=== PATIENT | female | born 1970 | race Caucasian/White ===

== ENCOUNTER → 2017-08-28 17:26 | Outpatient (CLI) | payer MEDICARE, MEDICAID, SELFPAY ==
--- NOTE | 2017-08-28 17:38 | XR_ITS ---
XR chest 2V HISTORY: ITS.REASON: COUGH,RHONCHI ORDERING PHYSICIAN: Sanna Brito PATIENT AGE: 47 years COMPARISON: 10/27/2016 FINDINGS:. No lobar consolidation or collapse. Prior left mastectomy. No acute bony anomalies. The cardiomediastinal silhouette and pulmonary vascularity are within normal limits. Right subclavian Mediport catheter remains in place. The tip is in region of the superior vena cava. There is some hyperinflation with coarsening of the bronchovascular markings. IMPRESSION: No change with no acute finding. Hyperinflation suggesting small airway disease/COPD
== END ==
PROVIDERS: PCP Physician Assistant; Visit Provider Physician Assistant
DX: R05 Cough (principal); R09.89 Other specified symptoms and signs involving the circulatory and respiratory systems
CPT/HCPCS: 71046

== ENCOUNTER 2018-11-19 13:48 | Emergency (ER) | payer MEDICARE, MEDICAID, SELFPAY ==
[2018-11-19] VITALS (8 sets, daily range): BP systolic 100–126; BP diastolic 53–84; PULSE 68–83; RESP 18; TEMP 36.6–37.2; O2SAT 94–100; BMI 21.8
--- NOTE | 2018-11-19 14:39 | PC.NURSE ---
SENT TO ED FOR FURTHER EVALUATION AND TREATMENT TO ROOM 8. REPORT GIVEN TO LAZ BOLANOS. TO ED PER W/C. WITH [facility] STAFF
--- NOTE | 2018-11-19 14:46 | HMH.EDGENADL ---
ED Disposition Clinical Impression: Lymphangitis Disposition: Home, Self-Care Condition on Discharge: Fair Instructions: DI for Lymphangitis-Adult Prescriptions: Sulfamethoxazole/Trimethoprim [Bactrim DS tablet] 1 each PO BID 7 Days #14 tab Sulfamethoxazole/Trimethoprim [Bactrim DS tablet] 1 each PO BID 7 Days #14 tab cephALEXin [Keflex 500mg Cap] 1,000 mg PO BID 7 Days #28 cap cephALEXin [Keflex 500mg Cap] 1,000 mg PO BID 7 Days #28 cap Hydrocodone/Acetaminophen [[place] 7.5-325 Tablet] 1 tab PO Q4H PRN 3 Days #10 tab PRN Reason: Moderate Pain Referrals: Provider,Referral, MD [Primary Care Provider] - Time of Disposition: 17:33 - Critical Care Critical Care Time: No Attestation: On 11/19/18, the high probability of a clinically significant, sudden or life threatening deterioration of the following system(s) required my full and direct attention, intervention and personal management. The time I documented below is in addition to time spent performing reported procedures but includes the following listed in this critical care notation. Medical Decision Making - Medical Records Medical records reviewed: Yes: I reviewed the patient's medical records. - Shaan Inquiry Pt receiving controlled substance: No Shaan was queried for this patient: No Vital Signs: 11/19/18 14:24 11/19/18 14:26 11/19/18 14:43 Temperature 98.9 F 98.9 F 98.9 F Temperature Source Oral Oral Oral Pulse Rate [Right Brachial] 77 77 77 Respiratory Rate 18 18 18 Blood Pressure [Right Arm] 102/53 L 102/53 L 102/53 L Blood Pressure Mean [Right Arm] 69 69 69 Blood Pressure Source [Right Arm] Automatic Cuff Automatic Cuff Automatic Cuff Blood Pressure Position [Right Arm] Sitting Sitting Sitting 02 Sat by Pulse Oximetry 94 L 94 L 94 L Oxygen Delivery Method Room Air Room Air Room Air 11/19/18 15:27 11/19/18 16:01 Temperature Temperature Source Pulse Rate [Right Brachial] 74 78 Respiratory Rate Blood Pressure [Right Arm] 110/61 107/75 L Blood Pressure Mean [Right Arm] 77 85 Blood Pressure Source [Right Arm] Automatic Cuff Automatic Cuff Blood Pressure Position [Right Arm] Sitting Sitting 02 Sat by Pulse Oximetry 95 95 Oxygen Delivery Method Room Air Room Air - Lab Data Lab results reviewed: Yes: I reviewed the patient's lab results. Lab Results 11/19/18 16:39: Sodium 134 L, Potassium 3.5, Chloride 98, Carbon Dioxide 28, Anion Gap 11.5, BUN 10, Creatinine 0.64, Estimated Creat Clear 83, Estimated GFR 99, Est GFR ( Amer) 120, Glucose 93, Calcium 9.2 Result diagrams: 11/19/18 16:39 Orders (Tests/Meds): ED MEDICATIONS Generic Name Dose Route Start Last Admin Trade Name Freq PRN Reason Stop Dose Admin Ceftriaxone Sodium 2 gm/ 100 mls @ 200 mls/hr 11/19/18 15:45 11/19/18 16:45 Sodium Chloride IV 12/03/18 15:44 200 mls/hr Q24H KENDRA Administration Protocol Discontinued Medications Generic Name Dose Route Start Last Admin Trade Name Freq PRN Reason Stop Dose Admin Ketorolac Tromethamine 60 mg 11/19/18 14:52 11/19/18 14:56 Toradol 60mg/2ml Vial IM 11/19/18 14:53 Not Given ONCE ONE Methylprednisolone Sodium Succinate 80 mg 11/19/18 15:41 11/19/18 16:45 Methylprednisolone Sod Succinate 40mg Vial IV 11/19/18 15:42 80 mg ONCE ONE Administration Prednisone 60 mg 11/19/18 14:52 11/19/18 14:57 Deltasone 20mg Tablet PO 11/19/18 14:53 Not Given ONCE ONE ORDERS Category Date Time Status CBC [Complete Blood Count Auto Diff] Stat Lab 11/19/18 16:39 Received Lactic Acid Stat Lab 11/19/18 16:39 Received Blood Culture Stat Micro 11/19/18 16:29 Received - Radiology Data #1 Image(s): Other (ultrasound left arm, doppler venous) Image Reviewed: Yes I discussed the image results w/the radiologist Preliminary Findings: Normal/NAD General Adult HPI - General Stated complaint: infection on arm Time Seen by Provider: 11/19/18 14:46 Mode of Arrival: F
--- NOTE | 2018-11-19 14:51 | ED_ITS ---
ED Disposition Clinical Impression: Lymphangitis Disposition: Home, Self-Care Condition on Discharge: Fair Instructions: DI for Lymphangitis-Adult Prescriptions: Sulfamethoxazole/Trimethoprim [Bactrim DS tablet] 1 each PO BID 7 Days #14 tab Sulfamethoxazole/Trimethoprim [Bactrim DS tablet] 1 each PO BID 7 Days #14 tab cephALEXin [Keflex 500mg Cap] 1,000 mg PO BID 7 Days #28 cap cephALEXin [Keflex 500mg Cap] 1,000 mg PO BID 7 Days #28 cap Hydrocodone/Acetaminophen [[place] 7.5-325 Tablet] 1 tab PO Q4H PRN 3 Days #10 tab PRN Reason: Moderate Pain Referrals: Provider,Referral, MD [Primary Care Provider] - Time of Disposition: 17:33 - Critical Care Critical Care Time: No Attestation: On 11/19/18, the high probability of a clinically significant, sudden or life threatening deterioration of the following system(s) required my full and direct attention, intervention and personal management. The time I documented below is in addition to time spent performing reported procedures but includes the following listed in this critical care notation. Medical Decision Making - Medical Records Medical records reviewed: Yes: I reviewed the patient's medical records. - Shaan Inquiry Pt receiving controlled substance: No Shaan was queried for this patient: No Vital Signs: 11/19/18 14:24 11/19/18 14:26 11/19/18 14:43 Temperature 98.9 F 98.9 F 98.9 F Temperature Source Oral Oral Oral Pulse Rate [Right Brachial] 77 77 77 Respiratory Rate 18 18 18 Blood Pressure [Right Arm] 102/53 L 102/53 L 102/53 L Blood Pressure Mean [Right Arm] 69 69 69 Blood Pressure Source [Right Arm] Automatic Cuff Automatic Cuff Automatic Cuff Blood Pressure Position [Right Arm] Sitting Sitting Sitting 02 Sat by Pulse Oximetry 94 L 94 L 94 L Oxygen Delivery Method Room Air Room Air Room Air 11/19/18 15:27 11/19/18 16:01 Temperature Temperature Source Pulse Rate [Right Brachial] 74 78 Respiratory Rate Blood Pressure [Right Arm] 110/61 107/75 L Blood Pressure Mean [Right Arm] 77 85 Blood Pressure Source [Right Arm] Automatic Cuff Automatic Cuff Blood Pressure Position [Right Arm] Sitting Sitting 02 Sat by Pulse Oximetry 95 95 Oxygen Delivery Method Room Air Room Air - Lab Data Lab results reviewed: Yes: I reviewed the patient's lab results. Lab Results 11/19/18 16:39: Sodium 134 L, Potassium 3.5, Chloride 98, Carbon Dioxide 28, Anion Gap 11.5, BUN 10, Creatinine 0.64, Estimated Creat Clear 83, Estimated GFR 99, Est GFR ( Amer) 120, Glucose 93, Calcium 9.2 Result diagrams: 11/19/18 16:39 Orders (Tests/Meds): ED MEDICATIONS Generic Name Dose Route Start Last Admin Trade Name Freq PRN Reason Stop Dose Admin Ceftriaxone Sodium 2 gm/ 100 mls @ 200 mls/hr 11/19/18 15:45 11/19/18 16:45 Sodium Chloride IV 12/03/18 15:44 200 mls/hr Q24H KENDRA Administration Protocol Discontinued Medications Generic Name Dose Route Start Last Admin Trade Name Freq PRN Reason Stop Dose Admin Ketorolac Tromethamine 60 mg 11/19/18 14:52 11/19/18 14:56 Toradol 60mg/2ml Vial IM 11/19/18 14:53 Not Given ONCE ONE
--- NOTE | 2018-11-19 15:39 | NVE_ITS ---
Venous Exam Indications: 729.81 Swelling of limb. Redness of LUE, no trauma. Pt has hx of gamma knife brain surgery in 2018. IMPRESSIONS No evidence of deep or superficial vein thrombosis involving the veins of the left upper extremity Left upper extremity venous duplex. Doppler flow study including spectral analysis, color and gonzalez scale imaging. Location: Vascular laboratory. Patient status: Emergency department. CRITICAL FINDINGS - Reported to: Dr. Leon - 11/19/2018 - 16:13 pm - Neg. for DVT Tables: Venous flow and imaging: + + + Location Flow properties + + + Left internal jugular Normal phasicity; spontaneous; compressible + + + Left subclavian Normal phasicity; spontaneous; normal augmentation; compressible + + + Left axillary Normal phasicity; spontaneous; normal augmentation; compressible + + + Left brachial Normal phasicity; spontaneous; normal augmentation; compressible + + + Left cephalic Normal phasicity; spontaneous; normal augmentation; compressible + + + Left basilic Normal phasicity; spontaneous; normal augmentation; compressible + + + Left radial Compressible + + + Left ulnar Compressible + + + Right subclavian Normal phasicity; spontaneous; normal augmentation; compressible + + + (Report amended ) Electronically signed by: Galo Narayan [id number]
[2018-11-19 17:03] LABS: Anion Gap 11.5 mEq/L (5-15); Blood Urea Nitrogen 10 mg/dL (7-18); Calcium 9.2 mg/dL (8.5-10.1); Carbon Dioxide 28 mmol/L (21.0-32.0); Chloride 98 mmol/L (98-107); Creatinine Clearance Estimated 83 mL/min (50-200); Creatinine,Serum 0.64 mg/dL (0.55-1.02); Estimated Glomerular Filt Rate 99 ml/min (>60); GFR (African American) 120 ML/MIN (>60); Glucose 93 mg/dL (74-106); Potassium 3.5 mmoL/L (3.5-5.1); Sodium 134 mmol/L (136-145)
[2018-11-19 17:26] LABS: Lactic Acid 1.6 mmol/L (0.4-2.0)
[2018-11-19 17:31] LABS: Basophils % 0.2 % (0.1-2.0); Eosinophils % 0.1 % (0.1-12.0); Hemoglobin 15.4 g/dL (12.2-16.2); Lymphocytes # 0.8 K/mm3 (0.7-4.5); Lymphocytes % 7.3 % (10-50); Mean Corpuscular HGB Conc 35.7 g/dL (31.8-35.4); Mean Corpuscular Hemoglobin 35.5 pg (27.0-31.2); Mean Corpuscular Volume 99.3 fl (81-99); Mean Platelet Volume 8.6 fl (7.4-10.4); Monocytes # 0.3 K/mm3 (0.1-1.0); Monocytes % 2.7 % (1.7-9.3); Neutrophils # 9.4 K/mm3 (1.8-7.8); Neutrophils % 89.6 % (37.0-80.0); Platelet Count 77 K/mm3 (142-424); Red Blood Count 4.33 M/mm3 (4.20-5.40); Red Cell Distribution Width 14.9 % (11.5-17.5); White Blood Count 10.5 K/mm3 (4.8-10.8)
[2018-11-19 17:34] LABS: MANUAL DIFFERENTIAL MANUAL DIFFERENTIAL (MANUAL DIFF)
[2018-11-19 18:24] LABS: Lymphocytes % 7 % (10-50); Monocytes % 2 % (2-9); Neutrophils % 56 % (42-76); Platelet Estimate Slight Decrease; RBC Morphology Normal; Total Cells Counted 100
== END 2018-11-19 17:56 | disposition home or self-care (01) ==
LOC: UTC 14:14 → ER 14:41
PROVIDERS: Emergency Provider Emergency Medicine
DX: L04.2 Acute lymphadenitis of upper limb (principal); Z85.3 Personal history of malignant neoplasm of breast; M79.622 Pain in left upper arm
CPT/HCPCS: 80048; 83605; 85007; 85025; 87040; 93971; 96365; 96375; 99284